=== PATIENT | female | born 1965 | race Caucasian/White ===

== ENCOUNTER 2017-05-23 15:14 | Emergency (ER) | payer MEDICAID ==
[~2017-05-23] VITALS: Ht 152.4 cm; Wt 54.4 kg
--- NOTE | 2017-05-23 16:00 | NUR ---
mse completed, aci/ rx 1 given
[2017-05-23 16:03] VITALS: BP 110/74
== END 2017-05-23 16:04 | disposition home or self-care (01) ==
LOC: ER 15:15
DX: I88.9 Nonspecific lymphadenitis, unspecified (principal); I10 Essential (primary) hypertension
CPT/HCPCS: 99283; A4663

== ENCOUNTER 2017-06-17 09:11 | Emergency (ER) | payer MEDICAID ==
[~2017-06-17] VITALS: Ht 147.3 cm; Wt 51.5 kg
[2017-06-17] MEDS ORDERED: NEOM10DR11 EACH EAR (09:26)
[2017-06-17] MEDS ORDERED: LEVO500T90 PO (09:26)
--- NOTE | 2017-06-17 09:30 | NUR ---
DR ALVARES AT THE BEDSIDE FOR EVAL AND EXAM.
[2017-06-17 10:29] VITALS: BP 115/79
--- NOTE | 2017-06-17 10:30 | NUR ---
Patient discharged to home in stable conditon. Written and verbal after care instructions given. Patient verbalizes understanding of instructions.
== END 2017-06-17 10:30 | disposition home or self-care (01) ==
LOC: ER 09:11
DX: R13.10 Dysphagia, unspecified (principal); I10 Essential (primary) hypertension
CPT/HCPCS: 70360; A4663